=== PATIENT | male | born 1970 | race Two or more races ===

== ENCOUNTER 2017-04-05 14:18 | Emergency (ER) | payer OTHER ==
[~2017-04-05] VITALS: Ht 180.3 cm; Wt 135.5 kg
[2017-04-05 14:24] VITALS: Ht 180.3 cm; Wt 135.5 kg
[2017-04-05] MEDS ORDERED: predniSONE 20 MG TAB PO ONE (15:00)
[2017-04-05] MEDS ORDERED: OPHTHALMIC IRRIG SOLUTION 120 ML LEFT EYE ONE ×2 (15:00)
[2017-04-05] MEDS ORDERED: ACETAMINOPHEN 325 MG TAB PO ONE (15:00)
[2017-04-05] MEDS ORDERED: FLUORESCEIN STRIP LEFT EYE ONE (15:00)
[2017-04-05] MEDS ORDERED: IBUP-1542 PO (15:34)
[2017-04-05] MEDS ORDERED: ERYTOPOI LEFT EYE (15:34)
--- NOTE | 2017-04-05 15:37 | ERD ---
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 He is wearing goggles but when he removed the goggles he felt some irritation in his left eye. He has some redness and discharge and tearing. Denies contact lens use or visual field deficits. He has some revision due to the irritation. ROS All systems reviewed and are negative except as per history of present illness. Medications Home Meds Active Scripts Erythromycin* (Erythromycin* Ophthalmic) 1 Applic Oint, 1 APPLIC LEFT EYE QID for 7 Days, EA Prov:BERTIN JEFF MD 04/05/17 Ibuprofen* (Motrin*) 600 Mg Tab, 600 MG PO Q6, #20 TAB Prov:BERTIN JEFF MD 04/05/17 Allergies Allergies: Coded Allergies: No Known Allergy (Unverified , 04/05/17) PMhx/Soc Medical and Surgical Hx: pt denies Medical Hx History of Surgery: No Anesthesia Reaction: No Hx Neurological Disorder: No Hx Respiratory Disorders: No Hx Cardiac Disorders: Yes (htn) Hx Psychiatric Problems: No Hx Miscellaneous Medical Probl: No Hx Alcohol Use: No Hx Substance Use: No Hx Tobacco Use: No Smoking Status: Never smoker Physical Exam Vitals Vital Signs Date Time Temp Pulse Resp B/P Pulse Ox O2 Delivery O2 Flow Rate FiO2 04/05/17 14:24 98.4 94 16 194/115 96 Physical Exam Const: [] Alert, [id number]. Head: Atraumatic Eyes: Normal Conjunctiva. Redness and ecchymosis of the left sclera. Eyes are PERRLA and extraocular movements intact there is no visible foreign body and fluorescein test shows no significant abrasions or dendritic lesions. Visual acuity is compromised patient has irritation and redness. He has no visual field deficits appreciated. ENT: Normal External Ears, Nose and Mouth. Neck: Full range of motion..~ No meningismus. Resp: Clear to auscultation bilaterally Cardio: Regular rate and rhythm, no murmurs Abd: Soft, non tender, non distended. Normal bowel sounds Skin: No petechiae or rashes Back: No midline or flank tenderness Ext: No cyanosis, or edema Neur: Awake and alert Psych: Normal Mood and Affect Results 24 hrs Current Medications Medications (Trade) Dose Ordered Sig/[place] Route PRN Reason Start Time Stop Time Status Last Admin Dose Admin Fluorescein Sodium ([id number]) 1 strip ONCE ONCE LEFT EYE 04/05/17 15:00 04/05/17 15:01 DC Irrigating Solution (Eye Wash) 1 applic ONCE ONCE LEFT EYE 04/05/17 15:00 04/05/17 15:01 DC Acetaminophen (Tylenol Tab) 650 mg ONCE ONCE PO 04/05/17 15:00 04/05/17 15:01 DC 04/05/17 15:08 Prednisone (Prednisone) 40 mg ONCE ONCE PO 04/05/17 15:00 04/05/17 15:01 DC 04/05/17 15:08 Irrigating Solution (Eye Wash) 1 applic ONCE ONCE LEFT EYE 04/05/17 15:00 04/05/17 15:01 DC Procedures/MDM Patient presents with signs and symptoms and history consistent with chemical irritation or foreign body or dust irritation of his left eye. It is likely a dust foreign body and no foreign body for removal is appreciated. His eye was irrigated copiously. Patient will be treated with erythromycin ointment, continued irrigation at home and instructed to follow-up with ophthalmology this week. He should return for fevers, redness, new worsening symptoms. Signs or symptoms do not suggest dendritic lesions, globe rupture, orbital cellulitis, optic neuritis, retinal artery occlusion. Patient should however follow-up with memory care director as directed or for new or worsening symptoms. Departure Diagnosis: Primary Impression: Eye problem Condition: Stable Patient Instructions: Conjunctivitis, Allergic Referrals: [facility] Hours: Mon - Fri 9:00 AM - 5:00 PM Additional Instructions: Likely conjunctivitis from irritation from dust. See memory care director for persistent symptoms despite 1-2 days adequate rest. Recheck otherwise for new or worsening symptoms. BERTIN JEFF MD April 05, 2017 15:37
== END 2017-04-05 16:23 | disposition home or self-care (01) ==
LOC: FTE 14:18
DX: H57.8 Other specified disorders of eye and adnexa (principal); I10 Essential (primary) hypertension
CPT/HCPCS: 99283; J7512